=== PATIENT | female | born 1970 | race Two or more races ===

== ENCOUNTER 2017-03-06 22:14 | Emergency (ER) | payer SELFPAY ==
[~2017-03-06] VITALS: Ht 160 cm; Wt 122.5 kg
[~2017-03-06 22:14] MED LIST: IBUPROFEN800 MG ORAL
[2017-03-06] MEDS ORDERED: NKM (22:24)
[2017-03-06] MEDS ORDERED: IBUPROFEN600 MG ORAL (22:47)
--- NOTE | 2017-03-06 22:48 | Emergency Room Report ---
History of Present Illness General Chief Complaint: Headache Source: Patient, Family Member Present Illness HPI Is a 38-year-old female with no past history. She presents with chief complaint of headache. His been ongoing for couple weeks. Throbbing in nature. Also felt heart beating fast. Denies any fever chills denies any nausea vomiting. Her son is here with headache as well. He also is complaining of a lump in his head that is a normal suture line. She has no nausea no vomiting. No chest pain. No fever or chills. Allergies: Coded Allergies: No Known Allergies (Unverified , 01/10/15) Patient History Past Medical History: none Past Surgical History: none Pertinent Family History: none Social History: Reports: smoking Now: No Immunizations: other Reviewed Nursing Documentation: PMH: Agreed, PSxH: Agreed Nursing Documentation-PMH Hx Neurological Problems: Yes - Numbness on hands Review of Systems Eye: Denies: blurred vision, eye pain ENT: Denies: ear pain, nose congestion, throat swelling Respiratory: Denies: cough, shortness of breath Cardiovascular: Denies: chest pain, palpitations Gastrointestinal: Denies: abdominal pain, diarrhea, nausea, vomiting Musculoskeletal: Denies: back pain, joint pain Skin: Denies: rash Neurological: Reports: headache, Denies: numbness Endocrine: Denies: increased thirst, increased urine Hematologic/Lymphatic: Denies: easy bruising All Other Systems: negative except mentioned in HPI Physical Exam Vital Signs Date Time Temp Pulse Resp B/P Pulse Ox O2 Delivery O2 Flow Rate FiO2 03/06/ 22:20 98.4 92 16 152/90 97 Room Air vitals with hypertension Sp02 EP Interpretation: reviewed, normal General Appearance: obese Head: normocephalic, atraumatic Eyes: bilateral eye EOMI, bilateral eye PERRL ENT: hearing grossly normal, normal pharynx Neck: full range of motion, supple, no meningismus Respiratory: chest non-tender, lungs clear, normal breath sounds Cardiovascular #1: regular rate, rhythm, no murmur Gastrointestinal: normal bowel sounds, non tender, no mass, no organomegaly, no bruit, non-distended Musculoskeletal: back normal, gait/station normal, normal range of motion Psychiatric: mood/affect normal Skin: warm/dry Medical Decision Making Diagnostic Impression: Primary Impression: Headache Qualified Codes: G44.209 - Tension-type headache, unspecified, not intractable Additional Impressions: Morbid obesity with BMI of 45.0-49.9, adult Hyperglycemia due to type 2 diabetes mellitus Qualified Codes: E11.65 - Type 2 diabetes mellitus with hyperglycemia ER Course Patient presents with headache which is more likely to be tension in nature. Blood pressures normal now here. No evidence of infection. She appear to be anxious. This may be family related because she has been any was her son. Patient Accu-Chek been running in the [employer] here. Last food was around 7:30 p.m. Patient tell me that about a year ago she went to the clinic and had blood test done. The told her that she had borderline diabetes him to lose some weight. She been about 20-30 pounds since then. I will go ahead and treat the diabetes. Last Vital Signs Date Time Temp Pulse Resp B/P Pulse Ox O2 Delivery O2 Flow Rate FiO2 03/06/17 22:20 98.4 92 16 152/90 97 Room Air Status: improved Disposition: HOME, SELF-CARE Condition: Stable Scripts Metformin Hcl* (METFORMIN HCL*) 500 Mg Tablet 500 MG ORAL TWICE A DAY, #60 TAB Prov: JAROD TEE M.D. 03/06/17 Ibuprofen* (MOTRIN*) 600 Mg Tablet 600 MG ORAL THREE TIMES A DAY, #30 TAB 0 Refills Prov: JAROD TEE M.D. 03/06/17 Referrals: NOT CHOSEN [facility]/,REFERRING (PCP) Patient Instructions: Tension Headache Additional Instructions: Followup with your DrNegrita in 7 days. Return if symptom worsen. JAROD TEE M.D. March 06, 2017 22:48
[2017-03-06 22:53] VITALS: BP 123/73
[2017-03-06 23:21] LABS: APPEARANCE,URINE CLEAR; KETONES,URINE NEGATIVE (NEGATIVE); LEUKOCYTE ESTERASE ,URINE 1+ (NEGATIVE); NITRITE,URINE NEGATIVE (NEGATIVE); PH,URINE 5 (4.5-8.0); PROTEIN,URINE NEGATIVE (NEGATIVE); UROBILINOGEN,URINE NORMAL MG/DL (0.0-1.0)
[2017-03-06 23:33] LABS: BACTERIA,URINE FEW /HPF; SQUAMOUS EPITHELIAL CELL,UR OCCASIONAL /LPF (NONE/OCC); WBC,URINE 0-2 /HPF (0 - 2)
[2017-03-06] MEDS ORDERED: METFORMIN HCL500 M1 ORAL (23:44)
[2017-03-06 23:49] VITALS: BP 123/73
== END 2017-03-06 23:51 | disposition home or self-care (01) ==
LOC: EMR 22:32
DX: R51 Headache (principal); E66.01 Morbid (severe) obesity due to excess calories; Z68.42 Body mass index [BMI] 45.0-49.9, adult; E11.65 Type 2 diabetes mellitus with hyperglycemia; F17.200 Nicotine dependence, unspecified, uncomplicated
CPT/HCPCS: 81003; 99284